=== PATIENT | female | born 2000 | race Caucasian/White ===

== ENCOUNTER 2020-03-07 18:16 | Emergency (ER) | payer MEDICAID ==
[~2020-03-07] VITALS: Ht 170.2 cm; Wt 88.0 kg
[2020-03-07 18:21] VITALS: BP 0/0
[2020-03-07] MEDS ORDERED: MORPHINE SULFATE 10 MG/ML CPJ IM ONE (18:30)
[2020-03-07] MEDS ORDERED: LORAZEPAM 2MG/ML CPJ IM ONE (18:30)
== END 2020-03-07 22:21 | disposition home or self-care (01) ==
LOC: ER 18:16
DX: O26.891 Other specified pregnancy related conditions, first trimester (principal); M25.562 Pain in left knee; F84.0 Autistic disorder; Z3A.09 9 weeks gestation of pregnancy; V43.52XA Car driver injured in collision with other type car in traffic accident, initial encounter; Y93.89 Activity, other specified; Y92.488 Other paved roadways as the place of occurrence of the external cause
CPT/HCPCS: 73562; 76801; 96372; 99284; J2270; J2060